=== PATIENT | male | born 1955 | race Two or more races ===

== ENCOUNTER → 2016-08-13 | Outpatient (REF) | payer MEDICAID | LOC: M SFHCADAM 08:04 | PROVIDERS: ATTEND Family Medicine | DX: R35.1 Nocturia (principal); R63.1 Polydipsia ==

== ENCOUNTER → 2016-10-05 | Outpatient (REF) | payer MEDICAID ==
[2016-10-05 20:03] LABS: BASO % 0.3 % (0.0-1.0); EOS # 0.1 K/mm3 (0.0-0.50); EOS % 1.3 % (0.0-3.0); LARGE UNSTAINED CELL # 0.1 K/mm3 (0.0-0.4); LARGE UNSTAINED CELL % 1.5 % (0.0-4.0); LYMPH # 2.1 K/mm3 (1.5-4.5); LYMPH % 22.8 % (24.0-44.0); MEAN CORPUSCULAR HEMOGLOBIN 30.4 pg (27.0-33.0); MEAN CORPUSCULAR HGB CONC 33.4 g/dl (32.0-36.5); MEAN CORPUSCULAR VOLUME 91.1 fl (80.0-96.0); MONO # 0.5 K/mm3 (0.0-0.8); MONO % 5.9 % (0.0-5.0); NEUTROPHILS # 5.8 K/mm3 (1.8-7.7); NEUTROPHILS % 68.2 % (36.0-66.0); PLATELET COUNT, AUTOMATED 319 k/mm3 (150-450); RED CELL DISTRIBUTION WIDTH 12.8 % (11.5-14.5); WHITE BLOOD COUNT 8.5 K/mm3 (4.0-10.0)
[2016-10-05 20:24] LABS: ALBUMIN 3.9 GM/DL (3.2-5.2); ALBUMIN/GLOBULIN RATIO 1.39 (1.00-1.93); BILIRUBIN,TOTAL 0.6 MG/DL (0.2-1.0); CALCIUM LEVEL 9.2 MG/DL (8.8-10.2); CREATININE FOR GFR 1.56 MG/DL (0.70-1.30); GLOMERULAR FILTRATION RATE 48.6 (>49); POTASSIUM SERUM 4.1 MEQ/L (3.5-5.1); TOTAL PROTEIN 6.7 GM/DL (6.4-8.2)
== END ==
LOC: M SFHCADAM 14:58
PROVIDERS: ATTEND Family Medicine
DX: Z00.00 Encounter for general adult medical examination without abnormal findings (principal)

== ENCOUNTER → 2016-10-05 | Outpatient (CLI) | payer MEDICAID | LOC: M ADAMS 15:00 | PROVIDERS: ATTEND Family Medicine | DX: Z00.00 Encounter for general adult medical examination without abnormal findings (principal) ==

== ENCOUNTER → 2016-10-12 | Outpatient (REF) | payer MEDICAID, OTHER ==
[2016-10-12 20:26] LABS: CALCIUM LEVEL 9.2 MG/DL (8.8-10.2); CREATININE FOR GFR 1.52 MG/DL (0.70-1.30); POTASSIUM SERUM 4.4 MEQ/L (3.5-5.1)
== END ==
LOC: M SFHCADAM 16:58
PROVIDERS: ATTEND Family Medicine
DX: R94.4 Abnormal results of kidney function studies (principal)

== ENCOUNTER → 2017-01-14 | Outpatient (CLI) | payer MEDICAID, OTHER ==
--- NOTE | 2017-01-14 20:45 | REP ---
RENAL AND BLADDER ULTRASOUND: Real-time sonographic evaluation of the kidneys is performed. The right kidney measures 13.6 x 6.5 x 6.2 cm and left kidney is 13.2 x 4.6 x 6.4 cm. There is moderate to severe hydronephrosis bilaterally. No mass or calculus is seen. Bladder measures 17.7 x 12.7 x 12.1 cm for a volume of 1776 mL. No mass or calculus is seen. There are ureteral jets seen in the urinary bladder with Doppler color evaluation. There is significant postvoid residual after voiding of 1514 mL which is 85% of the original volume. IMPRESSION: Moderate to severe hydronephrosis bilaterally. Significantly distended bladder with significant postvoid residual as described above. Signed by Ryley Morley MD 01/15/2017 05:14 P
== END ==
LOC: M RAD 17:27
PROVIDERS: ATTEND Family Medicine
DX: N18.3 Chronic kidney disease, stage 3 (moderate) (principal)

== ENCOUNTER → 2017-02-05 | Outpatient (CLI) | payer OTHER ==
--- NOTE | 2017-02-05 16:51 | REP ---
ULTRASOUND URINARY BLADDER: Real-time sonographic evaluation of the urinary bladder performed. The bladder measures 15.3 x 12.0 x 11.2 cm for a total volume of 1342 mL. There are bilateral ureteral jets in the urinary bladder with Doppler color evaluation. No mass or calculus is seen. There is significant postvoid residual of 980 mL which is 73% of the original volume. Distal ureters appear moderately dilated which may indicate some degree of reflux or poor ureteral emptying. Signed by Ryley Morley MD 02/08/2017 09:54 A
== END ==
LOC: M RAD 14:01
PROVIDERS: ATTEND Family Medicine
DX: N40.1 Benign prostatic hyperplasia with lower urinary tract symptoms (principal)

== ENCOUNTER → 2017-03-15 | Outpatient (REF) | payer OTHER, MEDICAID | LOC: M SMT 16:58 | PROVIDERS: ATTEND Nurse Practitioner Women's Health | DX: N28.89 Other specified disorders of kidney and ureter (principal) ==

== ENCOUNTER → 2017-03-22 | Outpatient (REF) | payer MEDICAID, OTHER ==
[2017-03-22 14:06] LABS: ALBUMIN/GLOBULIN RATIO 1.08 (1.00-1.93); BILIRUBIN,TOTAL 0.3 MG/DL (0.2-1.0); CALCIUM LEVEL 9.1 MG/DL (8.8-10.2); CREATININE FOR GFR 2.1 MG/DL (0.70-1.30); GLOMERULAR FILTRATION RATE 34.5 (>49); TOTAL PROTEIN 7.7 GM/DL (6.4-8.2)
[2017-03-22 14:07] LABS: POTASSIUM SERUM 5.2 MEQ/L (3.5-5.1)
== END ==
LOC: M LABDRWAD 12:22
PROVIDERS: ATTEND Nurse Practitioner Women's Health
DX: N28.89 Other specified disorders of kidney and ureter (principal); R94.4 Abnormal results of kidney function studies

== ENCOUNTER → 2017-03-29 | Outpatient (REF) | payer MEDICAID, OTHER | LOC: M SMT 12:41 | PROVIDERS: ATTEND Urology | DX: R33.8 Other retention of urine (principal) ==

== ENCOUNTER → 2017-03-30 | Outpatient (CLI) | payer OTHER ==
--- NOTE | 2017-03-30 13:27 | REP ---
Renal ultrasound: Comparison is 01/14/2017. There is no hydronephrosis on the right on the left. The previous bilateral hydronephrosis has resolved. The right kidney measures 4.4 x 5.4 x 4.9 cm. Left kidney measures 11.3 by 4.8 x 4.9 cm. Renal cortical echogenicity on the right is isoechoic on the left is normal. There is a right renal simple cyst measuring 9.3 mm. There is a left renal simple cyst measuring 23 mm. There are no solid renal masses. There are no collecting system renal calculi on the right. There are linear echogenicities compatible with vascular atheroma. On the left. There are is a 6 mm renal calculus in the mid pole reji. No hydronephrosis. Bladder ultrasound: There is a Quiroz catheter. The bladder is incompletely distended. There is diffuse bladder wall thickening which be artifact from incomplete distension. Impression: The previous bilateral hydronephrosis has resolved. There is a nonobstructive left renal calculus. There are bilateral simple renal cortical cysts. There are no solid renal masses. Signed by Ryley Parsons MD 03/30/2017 01:18 P
== END ==
LOC: M SMT 10:10
PROVIDERS: ATTEND Urology
DX: N40.1 Benign prostatic hyperplasia with lower urinary tract symptoms (principal); R33.8 Other retention of urine

== ENCOUNTER → 2017-03-31 | Outpatient (CLI) | payer OTHER ==
--- NOTE | 2017-03-31 14:12 | REP ---
CT of the abdomen and pelvis without IV or bowel contrast: There are no comparisons. There is no hydronephrosis on the right on the left. There is a left renal parapelvic cyst. There are no renal or ureteral calculi on the right on the left. There are no bladder calculi. There is a Quiroz catheter in the bladder. The bladder is minimally distended. There is a cecal diverticulum without diverticulitis. The appendix is normal. The visualized lung roy are clear. The unenhanced hepatic parenchyma, gallbladder, pancreas and spleen are unremarkable. The adrenals, kidneys and abdominal aorta are unremarkable. I suspect a left renal parapelvic cyst. The abdominal aorta is unremarkable except for occasional calcified atheroma. Bowel and mesentery are unremarkable except for a cecal diverticulum without diverticulitis. Pelvis: There is a Quiroz catheter in the bladder. There is no adenopathy or ascites. The pelvic bowel loops are otherwise unremarkable. Impression: There is a Quiroz catheter in the bladder and the bladder is minimally distended. There is no hydronephrosis. There are no renal or ureteral calculi. I suspect there is a left renal parapelvic cyst. There is a cecal diverticulum without diverticulitis. There are phleboliths in the pelvis. Signed by Ryley Parsons MD 03/31/2017 02:03 P
== END ==
LOC: M RAD 13:07
PROVIDERS: ATTEND Nurse Practitioner Women's Health
DX: N13.1 Hydronephrosis with ureteral stricture, not elsewhere classified (principal)

== ENCOUNTER → 2017-04-13 | Outpatient (REF) | payer MEDICAID, OTHER ==
[2017-04-13 13:02] LABS: CALCIUM LEVEL 9.1 MG/DL (8.8-10.2); CREATININE FOR GFR 1.77 MG/DL (0.70-1.30); POTASSIUM SERUM 4.5 MEQ/L (3.5-5.1)
== END ==
LOC: M LABSMT 10:18
PROVIDERS: ATTEND Nurse Practitioner Women's Health
DX: R33.9 Retention of urine, unspecified (principal); R35.0 Frequency of micturition

== ENCOUNTER → 2017-04-20 | Outpatient (REF) | payer MEDICAID, OTHER ==
[2017-04-20 12:44] LABS: OSMOLALITY URINE 464 MOSM/KG (500-800)
[2017-04-20 12:46] LABS: OSMOLALITY SERUM 305 MOSM/KG (275-295)
[2017-04-20 12:50] LABS: APPEARANCE, URINE HAZY (CLEAR); BACTERIA, URINE AUTO 1+ (NEGATIVE); BILIRUBIN, URINE AUTO NEGATIVE (NEGATIVE); BLOOD, URINE BLOOD 1+ (NEGATIVE); COLOR, URINE YELLOW (YELLOW); GLUCOSE, URINE (UA) AUTO NEGATIVE (NEGATIVE); KETONE, URINE AUTO NEGATIVE (NEGATIVE); LEUKOCYTE ESTERASE, URINE AUTO 3+ (NEGATIVE); MUCUS, URINE SMALL (NEGATIVE); NITRITE, URINE AUTO NEGATIVE (NEGATIVE); PROTEIN, URINE AUTO 1+ mg/dL (NEGATIVE); RBC, URINE AUTO 17 /HPF (0-3); SPECIFIC GRAVITY URINE AUTO 1.012 (1.002-1.035); SQUAMOUS EPITHELIAL CELL UR AU 0 /HPF (0-6); UROBILINOGEN, URINE AUTO 0.2 mg/dL (0.0-2.0); WBC, URINE AUTO 97 /HPF (0-3)
[2017-04-20 12:51] LABS: ANION GAP 5 MEQ/L (8-16); BLOOD UREA NITROGEN 28 MG/DL (7-18); CALCIUM LEVEL 9.3 MG/DL (8.8-10.2); CARBON DIOXIDE LEVEL 30 MEQ/L (21-32); CHLORIDE LEVEL 108 MEQ/L (98-107); CREATININE FOR GFR 1.92 MG/DL (0.70-1.30); GLOMERULAR FILTRATION RATE 38.2 (>49); GLUCOSE, FASTING 114 MG/DL (80-110); POTASSIUM SERUM 5.1 MEQ/L (3.5-5.1); SODIUM LEVEL 143 MEQ/L (136-145)
== END ==
LOC: M SFHCADAM 09:29
DX: N18.3 Chronic kidney disease, stage 3 (moderate) (principal)

== ENCOUNTER → 2017-05-03 | Outpatient (REF) | payer OTHER ==
[2017-05-03 21:29] LABS: OSMOLALITY URINE 353 MOSM/KG (500-800)
== END ==
LOC: M LAB REF 16:49
DX: E23.2 Diabetes insipidus (principal)

== ENCOUNTER → 2017-05-04 | Outpatient (REF) | payer OTHER | LOC: M LABDRWAD 20:30 | DX: E23.2 Diabetes insipidus (principal) ==

== ENCOUNTER → 2017-05-28 | Outpatient (REF) | payer OTHER | LOC: M SMT 12:45 | DX: R33.9 Retention of urine, unspecified (principal) ==

== ENCOUNTER 2017-06-02 06:02 | Day surgery (SDC) | payer OTHER ==
[2017-06-02] MEDS: LR 1,000 ML IV (06:40)
[2017-06-02] MEDS ORDERED: ROCURONIUM BROMIDE 50 MG/5 ML VIAL As Ordered (07:14)
[2017-06-02] MEDS ORDERED: PROPOFOL 200 MG/20 ML VIAL As Ordered (07:14)
[2017-06-02] MEDS ORDERED: LIDOCAINE 2% INJ 100 MG/5 ML SDV (FOR ANES.) As Ordered (07:14)
[2017-06-02] MEDS ORDERED: fentaNYL 250 MCG/5 ML INJECTION (J3010) As Ordered (07:15)
[2017-06-02] MEDS ORDERED: MIDAZOLAM INJ 2 MG/2 ML VIAL (J2250) As Ordered (07:15)
[2017-06-02] MEDS ORDERED: ONDANSETRON 4MG/2ML VIAL (J2405) As Ordered (08:03)
[2017-06-02] MEDS ORDERED: ePHEDrine INJ 50 MG/ML VIAL As Ordered (08:03)
[2017-06-02] MEDS ORDERED: dexameTHASONE 4 MG/ML 1ML VIAL (J1100) As Ordered (08:03)
[2017-06-02] MEDS ORDERED: PHENYLephrine HCL 500 MCG/5 ML (100MCG/ML) SYRINGE (J2370) As Ordered (09:19)
[2017-06-02] MEDS ORDERED: ONDANSETRON 4MG/2ML VIAL (J2405) IV (10:15)
[2017-06-02] MEDS ORDERED: fentaNYL 100 MCG/2 ML INJECTION (J3010) IV (10:15)
[2017-06-02] MEDS ORDERED: LR 1,000 ML IV (10:15)
== END 2017-06-02 11:42 | disposition home or self-care (01) ==
LOC: M SDC 06:02
DX: N40.0 Benign prostatic hyperplasia without lower urinary tract symptoms (principal); I15.0 Renovascular hypertension; R94.31 Abnormal electrocardiogram [ECG] [EKG]; R06.00 Dyspnea, unspecified; R73.01 Impaired fasting glucose; F17.210 Nicotine dependence, cigarettes, uncomplicated; N18.3 Chronic kidney disease, stage 3 (moderate); R06.83 Snoring; Z79.899 Other long term (current) drug therapy
CPT/HCPCS: 52601

== ENCOUNTER → 2017-06-17 | Outpatient (REF) | payer OTHER | LOC: M LABWUC 19:36 | DX: N40.1 Benign prostatic hyperplasia with lower urinary tract symptoms (principal) | CPT/HCPCS: 87086 ==

== ENCOUNTER → 2017-06-18 | Outpatient (REF) | payer OTHER ==
[2017-06-18 17:35] LABS: APPEARANCE, URINE CLEAR (CLEAR); BACTERIA, URINE AUTO 1+ (NEGATIVE); BILIRUBIN, URINE AUTO NEGATIVE (NEGATIVE); BLOOD, URINE BLOOD 3+ (NEGATIVE); COLOR, URINE YELLOW (YELLOW); GLUCOSE, URINE (UA) AUTO NEGATIVE (NEGATIVE); KETONE, URINE AUTO NEGATIVE (NEGATIVE); LEUKOCYTE ESTERASE, URINE AUTO 1+ (NEGATIVE); NITRITE, URINE AUTO NEGATIVE (NEGATIVE); PROTEIN, URINE AUTO NEGATIVE (NEGATIVE); RBC, URINE AUTO TNTC /HPF (0-3); SPECIFIC GRAVITY URINE AUTO 1.015 (1.002-1.035); SQUAMOUS EPITHELIAL CELL UR AU 0 /HPF (0-6); UROBILINOGEN, URINE AUTO 0.2 mg/dL (0.0-2.0); WBC, URINE AUTO 41 /HPF (0-3)
== END ==
LOC: M SMT 16:53
DX: N40.1 Benign prostatic hyperplasia with lower urinary tract symptoms (principal)

== ENCOUNTER → 2018-11-11 | Outpatient (REF) | payer OTHER ==
[~2018-11-11] MED LIST: AMLO10TA5 PO; CIPR500T3 PO; FLOM0.4C39 PO; PROS5TAB PO; TYLE650T35 PO
[2018-11-11 19:48] LABS: APPEARANCE, URINE CLEAR (CLEAR); BACTERIA, URINE AUTO NEGATIVE (NEGATIVE); BILIRUBIN, URINE AUTO NEGATIVE (NEGATIVE); BLOOD, URINE BLOOD NEGATIVE (NEGATIVE); COLOR, URINE YELLOW (YELLOW); GLUCOSE, URINE (UA) AUTO NEGATIVE (NEGATIVE); KETONE, URINE AUTO NEGATIVE (NEGATIVE); LEUKOCYTE ESTERASE, URINE AUTO NEGATIVE (NEGATIVE); MUCUS, URINE SMALL (NEGATIVE); NITRITE, URINE AUTO NEGATIVE (NEGATIVE); PROTEIN, URINE AUTO NEGATIVE (NEGATIVE); RBC, URINE AUTO 0 /HPF (0-3); SPECIFIC GRAVITY URINE AUTO 1.014 (1.002-1.035); SQUAMOUS EPITHELIAL CELL UR AU 0 /HPF (0-6); UROBILINOGEN, URINE AUTO 0.2 mg/dL (0.0-2.0); WBC, URINE AUTO 1 /HPF (0-3)
[2018-11-11 19:51] LABS: BASO # 0.1 10^3/uL (0.0-0.2); BASO % 0.4 % (0.0-1.0); EOS # 0.2 10^3/uL (0.0-0.50); EOS % 1.7 % (0.0-3.0); HEMOGLOBIN 16.4 g/dl (13.5-17.5); LYMPH # 2.7 10^3/uL (1.5-4.5); LYMPH % 22.1 % (24.0-44.0); MEAN CORPUSCULAR HEMOGLOBIN 30.1 pg (27.0-33.0); MEAN CORPUSCULAR HGB CONC 33.5 g/dl (32.0-36.5); MEAN CORPUSCULAR VOLUME 90.1 fl (80.0-96.0); MONO # 0.9 10^3/uL (0.0-0.8); MONO % 7.1 % (0.0-5.0); NEUTROPHILS # 8.2 10^3/uL (1.8-7.7); NEUTROPHILS % 68.3 % (36.0-66.0); PLATELET COUNT, AUTOMATED 391 10^3/uL (150-450); RED BLOOD COUNT 5.44 10^6/uL (4.30-6.10)
[2018-11-11 19:59] LABS: ALBUMIN 4.4 GM/DL (3.2-5.2); BILIRUBIN,TOTAL 0.7 MG/DL (0.2-1.0); CALCIUM LEVEL 10.1 MG/DL (8.8-10.2); CREATININE FOR GFR 1.73 MG/DL (0.70-1.30); GLOMERULAR FILTRATION RATE 42.8 (>49); POTASSIUM SERUM 4.8 MEQ/L (3.5-5.1); TOTAL PROTEIN 7.8 GM/DL (6.4-8.2)
== END ==
LOC: M SFHCADAM 16:32
PROVIDERS: ATTEND Family Medicine
DX: I10 Essential (primary) hypertension (principal); Z87.448 Personal history of other diseases of urinary system

== ENCOUNTER → 2019-10-12 | Outpatient (REF) | payer OTHER ==
[2019-10-12 18:01] LABS: BASO % 0.4 % (0.0-1.0); EOS # 0.2 10^3/uL (0.0-0.5); EOS % 2.1 % (0.0-3.0); HEMATOCRIT 43.5 % (42.0-52.0); HEMOGLOBIN 14.4 g/dl (13.5-17.5); LYMPH # 2.2 10^3/uL (1.5-5.0); LYMPH % 22.6 % (24.0-44.0); MEAN CORPUSCULAR HEMOGLOBIN 29.9 pg (27.0-33.0); MEAN CORPUSCULAR HGB CONC 33.1 g/dl (32.0-36.5); MEAN CORPUSCULAR VOLUME 90.2 fl (80.0-96.0); MONO # 0.8 10^3/uL (0.0-0.8); MONO % 8.3 % (0.0-5.0); NEUTROPHILS # 6.3 10^3/uL (1.5-8.5); PLATELET COUNT, AUTOMATED 370 10^3/uL (150-450); RED BLOOD COUNT 4.82 10^6/uL (4.30-6.10); WHITE BLOOD COUNT 9.5 10^3/uL (4.0-10.0)
[2019-10-12 18:09] LABS: ALBUMIN 3.7 GM/DL (3.2-5.2); BILIRUBIN,TOTAL 0.7 MG/DL (0.2-1.0); CALCIUM LEVEL 9.3 MG/DL (8.8-10.2); CHOLESTEROL RISK RATIO 3.745 (<5); CREATININE FOR GFR 1.31 MG/DL (0.70-1.30); GLOMERULAR FILTRATION RATE 58.8 (>49); POTASSIUM SERUM 4.1 MEQ/L (3.5-5.1); TOTAL PROTEIN 6.8 GM/DL (6.4-8.2)
== END ==
LOC: M SFHCADAM 15:18
PROVIDERS: ATTEND Family Medicine
DX: Z00.00 Encounter for general adult medical examination without abnormal findings (principal)

== ENCOUNTER → 2019-12-07 | Outpatient (CLI) | payer OTHER ==
[~2019-12-07] MED LIST changes: +ACET650T61 PO; -AMLO10TA5 PO; +AMLO1TAB25 PO; -TYLE650T35 PO
--- NOTE | 2020-01-09 10:25 | REP ---
LUMBAR SPINE SERIES COMPARISON: None. REASON FOR EXAM: Pain. FINDINGS: Heavy marginal osteophytosis is seen bilaterally at all levels of varying degrees. This is also seen involving the imaged portion of the thoracic spine. Vertebral body height and alignment are within normal limits with some straightening of the normal lumbar lordotic curve. There is moderate disc space narrowing at every level. There is anterior lipping at every level. Degenerative facet joint changes are seen bilaterally at every level. There is no evidence of spondylolysis or spondylolisthesis. IMPRESSION: * Chronic changes as described above. * Straightening of the normal lumbar lordotic curve suggesting the clinical diagnosis of muscular spasm. MTDD
== END ==
LOC: M ADAMS 08:52
PROVIDERS: ATTEND Family Medicine
DX: M25.78 Osteophyte, vertebrae (principal); M51.36 Other intervertebral disc degeneration, lumbar region; M62.830 Muscle spasm of back

== ENCOUNTER → 2020-09-17 | Outpatient (REF) | payer OTHER ==
[2020-09-17 18:13] LABS: BASO # 0.1 10^3/uL (0.0-0.2); BASO % 0.5 % (0.0-1.0); EOS # 0.2 10^3/uL (0.0-0.5); EOS % 2.4 % (0.0-3.0); HEMATOCRIT 51.9 % (42.0-52.0); HEMOGLOBIN 16.6 g/dl (13.5-17.5); LYMPH # 2.2 10^3/uL (1.5-5.0); LYMPH % 23.1 % (24.0-44.0); MEAN CORPUSCULAR HEMOGLOBIN 29.3 pg (27.0-33.0); MEAN CORPUSCULAR VOLUME 91.5 fl (80.0-96.0); MONO # 0.7 10^3/uL (0.0-0.8); MONO % 7.3 % (2.0-8.0); NEUTROPHILS # 6.2 10^3/uL (1.5-8.5); NEUTROPHILS % 66.1 % (36.0-66.0); PLATELET COUNT, AUTOMATED 386 10^3/uL (150-450); RED BLOOD COUNT 5.67 10^6/uL (4.30-6.10); WHITE BLOOD COUNT 9.3 10^3/uL (4.0-10.0)
[2020-09-17 18:26] LABS: ALBUMIN 3.7 GM/DL (3.2-5.2); BILIRUBIN,TOTAL 0.5 MG/DL (0.2-1.0); CALCIUM LEVEL 9.7 MG/DL (8.8-10.2); CHOLESTEROL RISK RATIO 4.245 (<5); CREATININE FOR GFR 1.67 MG/DL (0.70-1.30); GLOMERULAR FILTRATION RATE 44.3 (>49); POTASSIUM SERUM 4.8 MEQ/L (3.5-5.1); THYROID STIMULATING HORMONE 1.17 uIU/ML (0.358-3.740); TOTAL PROTEIN 6.8 GM/DL (6.4-8.2)
[2020-09-17 18:52] LABS: CREATININE, URINE 56.5 MG/DL; MALB URINE SIEMENS 5.8 MG/L; MAU/CREAT RATIO 10.2 MCG/MG (0.0-30.0)
== END ==
LOC: M SFHCADAM 14:18
PROVIDERS: ATTEND Physician Assistant Medical
DX: N18.30 Chronic kidney disease, stage 3 unspecified (principal); E78.00 Pure hypercholesterolemia, unspecified; F17.218 Nicotine dependence, cigarettes, with other nicotine-induced disorders; R04.0 Epistaxis

== ENCOUNTER → 2021-05-05 | Outpatient (REF) | payer OTHER | LOC: M SFHCADAM 12:25 | PROVIDERS: ATTEND Family Medicine | DX: R09.81 Nasal congestion (principal) ==

== ENCOUNTER → 2021-11-13 | Outpatient (REF) | payer OTHER | LOC: M SFHCADAM 09:03 | PROVIDERS: ATTEND Family Medicine | DX: Z53.9 Procedure and treatment not carried out, unspecified reason (principal) ==

== ENCOUNTER → 2021-11-14 | Outpatient (CLI) | payer OTHER | LOC: M PLAIMG 15:33 | PROVIDERS: ATTEND Family Medicine | DX: G45.9 Transient cerebral ischemic attack, unspecified (principal); N18.32 Chronic kidney disease, stage 3b ==

== ENCOUNTER → 2021-11-17 | Outpatient (CLI) | payer OTHER ==
[2021-11-17 14:42] LABS: CREATININE, URINE 82.2 MG/DL; MALB URINE SIEMENS 7.1 MG/L; MAU/CREAT RATIO 8.6 MCG/MG (0.0-30.0)
[2021-11-18 08:56] LABS: ALBUMIN 3.6 GM/DL (3.2-5.2); BILIRUBIN,TOTAL 0.5 MG/DL (0.2-1.0); CALCIUM LEVEL 9.4 MG/DL (8.8-10.2); CHOLESTEROL RISK RATIO 4.08 (<5); CREATININE FOR GFR 1.41 MG/DL (0.70-1.30); FREE T4 0.98 NG/DL (0.76-1.46); GLOMERULAR FILTRATION RATE 53.7 (>49); HEMOGLOBIN A1c 5.6 %; THYROID STIMULATING HORMONE 2.57 uIU/ML (0.358-3.740); TOTAL PROTEIN 6.8 GM/DL (6.4-8.2)
[2021-11-18 09:12] LABS: HEMATOCRIT 54.4 % (42.0-52.0); HEMOGLOBIN 17.2 g/dl (13.5-17.5); MEAN CORPUSCULAR HEMOGLOBIN 29.5 pg (27.0-33.0); MEAN CORPUSCULAR HGB CONC 31.6 g/dl (32.0-36.5); MEAN CORPUSCULAR VOLUME 93.3 fl (80.0-96.0); PLATELET COUNT, AUTOMATED 367 10^3/uL (150-450); RED BLOOD COUNT 5.83 10^6/uL (4.30-6.10); WHITE BLOOD COUNT 10.9 10^3/uL (4.0-10.0)
== END ==
LOC: M RAD 09:17
PROVIDERS: ATTEND Family Medicine
DX: Z13.1 Encounter for screening for diabetes mellitus (principal); Z12.5 Encounter for screening for malignant neoplasm of prostate; I11.9 Hypertensive heart disease without heart failure; G45.9 Transient cerebral ischemic attack, unspecified; N18.32 Chronic kidney disease, stage 3b; E78.5 Hyperlipidemia, unspecified

== ENCOUNTER → 2021-11-18 | Outpatient (CLI) | payer MEDICARE, OTHER ==
[~2021-11-18] MED LIST changes: +ASPI81CH33 PO
== END ==
LOC: M CARPUL 07:44
PROVIDERS: ATTEND Family Medicine
DX: G45.9 Transient cerebral ischemic attack, unspecified (principal); I11.9 Hypertensive heart disease without heart failure

== ENCOUNTER 2021-11-24 17:13 | Emergency (ER) | payer OTHER ==
[~2021-11-24] VITALS: Ht 185.4 cm; Wt 95.6 kg
[~2021-11-24 17:13] MED LIST changes: -ASPI81CH33 PO
[2021-11-24] MEDS ORDERED: ASPI81CH33 PO (17:27)
[2021-11-24 19:00] LABS: BASO # 0.1 10^3/uL (0.0-0.2); BASO % 0.5 % (0.0-1.0); EOS # 0.3 10^3/uL (0.0-0.5); HEMATOCRIT 53.3 % (42.0-52.0); HEMOGLOBIN 17.2 g/dl (13.5-17.5); LYMPH # 2.2 10^3/uL (1.5-5.0); LYMPH % 20.3 % (24.0-44.0); MEAN CORPUSCULAR HEMOGLOBIN 29.7 pg (27.0-33.0); MEAN CORPUSCULAR HGB CONC 32.3 g/dl (32.0-36.5); MEAN CORPUSCULAR VOLUME 91.9 fl (80.0-96.0); MONO # 0.9 10^3/uL (0.0-0.8); MONO % 8.5 % (2.0-8.0); NEUTROPHILS # 7.3 10^3/uL (1.5-8.5); NEUTROPHILS % 67.2 % (36.0-66.0); PLATELET COUNT, AUTOMATED 367 10^3/uL (150-450); WHITE BLOOD COUNT 10.9 10^3/uL (4.0-10.0)
[2021-11-24 19:18] LABS: INR 0.95; PARTIAL THROMBOPLASTIN TIME 28.8 SECONDS (25.9-37.0)
[2021-11-24 19:30] VITALS: BP 185/100
[2021-11-24 19:49] LABS: CALCIUM LEVEL 9.7 MG/DL (8.8-10.2); CREATININE FOR GFR 1.34 MG/DL (0.70-1.30); POTASSIUM SERUM 4.3 MEQ/L (3.5-5.1)
[2021-11-24 19:56] LABS: CK-MB VALUE MASS 2.2 NG/ML (<3.6); MB/CK RELATIVE INDEX 1.51 (< OR =4)
== END 2021-11-24 20:32 | disposition left against medical advice (07) ==
LOC: M ED 17:13
DX: G45.9 Transient cerebral ischemic attack, unspecified (principal); I10 Essential (primary) hypertension; F17.200 Nicotine dependence, unspecified, uncomplicated; Z86.73 Personal history of transient ischemic attack (TIA), and cerebral infarction without residual deficits; Z79.899 Other long term (current) drug therapy; Z53.21 Procedure and treatment not carried out due to patient leaving prior to being seen by health care provider

== ENCOUNTER → 2022-04-09 | Outpatient (REF) | payer OTHER ==
[~2022-04-09] MED LIST changes: +ASPI81CH33 PO
[2022-04-09 14:46] LABS: HEMATOCRIT 53.1 % (42.0-52.0); HEMOGLOBIN 16.7 g/dl (13.5-17.5); MEAN CORPUSCULAR HEMOGLOBIN 29.2 pg (27.0-33.0); MEAN CORPUSCULAR HGB CONC 31.5 g/dl (32.0-36.5); PLATELET COUNT, AUTOMATED 403 10^3/uL (150-450); RED BLOOD COUNT 5.71 10^6/uL (4.30-6.10); WHITE BLOOD COUNT 13.7 10^3/uL (4.0-10.0)
[2022-04-09 15:21] LABS: ALBUMIN 3.8 G/DL (3.2-5.2); ALKALINE PHOSPHATASE 74 U/L (46-116); ALT/SGPT 23 U/L (7.0-40); AST/SGOT 23 U/L (<34); BILIRUBIN,TOTAL 0.6 MG/DL (0.3-1.2); BLOOD UREA NITROGEN 25 MG/DL (9-23); CALCIUM LEVEL 9.5 MG/DL (8.3-10.6); CARBON DIOXIDE LEVEL 28 MMOL/L (20-31); CHLORIDE LEVEL 103 MMOL/L (98-107); CHOLESTEROL LEVEL 126 MG/DL (<200); CHOLESTEROL RISK RATIO 2.72 (<5); CREATININE FOR GFR 1.15 MG/DL (0.70-1.30); GLOMERULAR FILTRATION RATE > 60.0 (>49); GLUCOSE, FASTING 99 MG/DL (74-106); HDL CHOLESTEROL 46.2 MG/DL (>40); LDL CHOLESTEROL 70.2 MG/DL (<100); NON-HDL-C 80 MG/DL; SODIUM LEVEL 136 MMOL/L (136-145); TOTAL PROTEIN 6.9 G/DL (5.7-8.2); TRIGLYCERIDES LEVEL 48 MG/DL (<150)
== END ==
LOC: M SFHCADAM 12:06
PROVIDERS: ATTEND Family Medicine
DX: E78.5 Hyperlipidemia, unspecified (principal); N18.31 Chronic kidney disease, stage 3a

== ENCOUNTER → 2024-01-05 | Outpatient (CLI) | payer MEDICARE ==
[~2024-01-05] MED LIST changes: +FINA-48 PO; -PROS5TAB PO
== END ==
LOC: M EKG 17:12
PROVIDERS: ATTEND Internal Medicine Cardiovascular Disease
DX: I49.40 Unspecified premature depolarization (principal); G45.9 Transient cerebral ischemic attack, unspecified

== ENCOUNTER → 2024-02-04 | Outpatient (CLI) | payer MEDICARE, MEDICAID | LOC: M PLAIMG 08:52 | PROVIDERS: ATTEND Internal Medicine Cardiovascular Disease | DX: R60.0 Localized edema (principal); I49.40 Unspecified premature depolarization; G47.9 Sleep disorder, unspecified; I27.20 Pulmonary hypertension, unspecified; I08.3 Combined rheumatic disorders of mitral, aortic and tricuspid valves ==

== ENCOUNTER → 2024-02-07 | Outpatient (REF) | payer MEDICARE, MEDICAID ==
[2024-02-07 18:58] LABS: HEMATOCRIT 43.1 % (42.0-52.0); HEMOGLOBIN 14.1 g/dl (13.5-17.5); MEAN CORPUSCULAR HEMOGLOBIN 29.9 pg (27.0-33.0); MEAN CORPUSCULAR HGB CONC 32.7 g/dl (32.0-36.5); MEAN CORPUSCULAR VOLUME 91.5 fl (80.0-96.0); PLATELET COUNT, AUTOMATED 405 10^3/uL (150-450); RED BLOOD COUNT 4.71 10^6/uL (4.30-6.10)
[2024-02-07 19:03] LABS: ALBUMIN 3.6 G/DL (3.2-5.2); BILIRUBIN,TOTAL 0.8 MG/DL (0.3-1.2); CALCIUM LEVEL 9.6 MG/DL (8.3-10.6); CHOLESTEROL RISK RATIO 3.12 (<5); CREATININE FOR GFR 1.28 MG/DL (0.70-1.30); GLOMERULAR FILTRATION RATE 59.7 (>49); HDL CHOLESTEROL 37.5 MG/DL (>40); LDL CHOLESTEROL 72.7 MG/DL (<100); NON-HDL-C 79.5 MG/DL; POTASSIUM SERUM 4.8 MMOL/L (3.5-5.1); TOTAL PROTEIN 6.8 G/DL (5.7-8.2)
[2024-02-07 19:05] LABS: THYROID STIMULATING HORMONE 2.669 uIU/ML (0.55-4.78)
== END ==
LOC: M LABDRWAD 17:29
PROVIDERS: ATTEND Internal Medicine Cardiovascular Disease
DX: I10 Essential (primary) hypertension (principal); E78.00 Pure hypercholesterolemia, unspecified; R60.0 Localized edema

== ENCOUNTER → 2024-02-24 | Outpatient (CLI) | payer MEDICARE, MEDICAID | LOC: M CARPUL 09:54 | PROVIDERS: ATTEND Internal Medicine Cardiovascular Disease | DX: R94.31 Abnormal electrocardiogram [ECG] [EKG] (principal); R06.02 Shortness of breath; R53.83 Other fatigue ==

== ENCOUNTER → 2024-03-15 | Outpatient (CLI) | payer MEDICARE, MEDICAID ==
[~2024-03-15] MED LIST changes: +ISOVUE-370 76% 100ML VIAL As Ordered ONE
== END ==
LOC: M RAD 15:22
PROVIDERS: ATTEND Physician Assistant
DX: Z12.2 Encounter for screening for malignant neoplasm of respiratory organs (principal); R14.0 Abdominal distension (gaseous); F17.210 Nicotine dependence, cigarettes, uncomplicated
CPT/HCPCS: 71271; 74177; Q9967

== ENCOUNTER 2025-04-16 18:00 | Inpatient (IN) | payer MEDICARE, MEDICAID ==
[~2025-04-16] VITALS: Ht 185.4 cm; Wt 107.2 kg
[~2025-04-16 18:00] MED LIST changes: -AMOX875T2 PO; -ATOR80TA59 PO; -BAYE325T13 PO; -COLA100C5 PO; -IRBE300T25 PO; -OSEL75CA2 PO; -PRED20TA PO; -TAMS1CAP17 PO; -VENTAER INH
[2025-04-16 18:46] LABS: VENOUS BASE EXCESS -1.1 (-2.0-2.0); VENOUS HCO3 23.0 MMOL/L (23.0-27.0); VENOUS O2 SATURATION 77.1 % (60.0-80.0); VENOUS PARTIAL PRESSURE CO2 36.7 mmHg (38.0-50.0); VENOUS PARTIAL PRESSURE O2 43.0 mmHg (30.0-50.0); VENOUS PH 7.414 UNITS (7.330-7.430); VENOUS STANDARD HCO3 23.0 MMOL/L; VENOUS TOTAL CO2 24.1 MMOL/L (24.0-28.0)
[2025-04-16 18:47] LABS: PLATELET COUNT, AUTOMATED 349 10^3/uL (150-450)
[2025-04-16] MEDS: NS 0.9% IV STA (18:51)
[2025-04-16] MEDS: PIPERACILLIN/TAZOBACTAM SOD 4.5 GM in DEXTROSE 5% (D5W) ADV/MINI-BAG 50 ML IV ONE (18:51)
[2025-04-16] MEDS: [UNRECOGNIZED DRUG - OTHER] IV STA (18:51)
[2025-04-16] MEDS ORDERED: ISOVUE-370 76% 100 ML VIAL As Ordered ONE (19:06)
[2025-04-16 19:10] LABS: CPK CREATINE PHOSPHOKINASE 571.0 U/L (46-171)
[2025-04-16 19:11] LABS: ATYPICAL LYMPH 2 % (0-5); LYMPHOCYTES 11 % (16-44); MONOCYTES 2 % (0-5); NEUTROPHILS 84 % (28-66); PLATELET ESTIMATE NORMAL (NORMAL)
[2025-04-16 19:21] LABS: INR 1.07
[2025-04-16 19:32] LABS: ALT/SGPT 48.0 U/L (7.0-40); AST/SGOT 72.0 U/L (<34); C REACTIVE PROTEIN QUANTITATIV 19.96 MG/DL (<1.0); CALCIUM LEVEL 8.5 MG/DL (8.3-10.6); CARBON DIOXIDE LEVEL 23.0 MMOL/L (20-31); CHLORIDE LEVEL 101.0 MMOL/L (98-107); CK-MB VALUE MASS 20.7 NG/ML (<3.6); CREATININE FOR GFR 1.77 MG/DL (0.70-1.30); GLOMERULAR FILTRATION RATE 41.3 (>49); MB/CK RELATIVE INDEX 3.62 (< OR =4); POTASSIUM SERUM 3.8 MMOL/L (3.5-5.1); SODIUM LEVEL 134.0 MMOL/L (136-145); THYROXINE (T4) 10.9 UG/DL (4.5-10.9)
[2025-04-16] MEDS: IPRATROPIUM 0.5 MG/ALBUTEROL 2.5 MG INH SOL UD 3 ML NEB ONE (19:42)
[2025-04-16] MEDS: ALBUTEROL SULFATE 2.5 MG/0.5 ML INH CONCENTRATE NEB SOLN INH ONE (19:42)
[2025-04-16] MEDS: LIDOCAINE 2% 5 ML JELLY UROJET TOP ONE (19:49)
[2025-04-16 20:10] LABS: KETONE, URINE AUTO RFX NEGATIVE (NEGATIVE); LEUKOCYTE ESTERASE UR AUTO RFX NEGATIVE (NEGATIVE); MUCUS, URINE RFX SMALL (NEGATIVE); NITRITE, URINE AUTO RFX NEGATIVE (NEGATIVE); RBC, URINE AUTO RFX 0 /HPF (0-3); SQUAM EPITHELIAL CELL UR AURFX 0 /HPF (0-6); WBC, URINE AUTO RFX 1 /HPF (0-3)
[2025-04-16] MEDS: NOREPINEPHRINE 4MG IN D5 250ML 4 MG in IV 1 EA IV SCH ×2 (21:40→23:17)
[2025-04-16] MEDS ORDERED: NS (Normal Saline) 0.9% 1,000 ML IV SCH (21:45)
[2025-04-16] MEDS ORDERED: MOM 30 ML SUSPENSION UDC PO PRN (21:45)
[2025-04-16] MEDS ORDERED: MAALOX 30 ML SUSP *UDC PO PRN (21:45)
[2025-04-16 23:10] VITALS: BP 101/63; TEMP 97.9; O2SAT 96
[2025-04-16 23:15] VITALS: BP 101/65; O2SAT 94
[2025-04-16] MEDS: OSELTAMIVIR PHOSPHATE 30MG CAPSULE PO ONE (23:17)
[2025-04-16] MEDS: NS (Normal Saline) 0.9% 1,000 ML IV SCH (23:17)
[2025-04-16] MEDS: AZITHROMYCIN INJ 500 MG, VIAL MATE ADAPTER 1 EACH in NS 250 ML IV SCH (23:18)
[2025-04-16 23:30] VITALS: BP 105/69; O2SAT 92
[2025-04-16 23:45] VITALS: BP 107/73; O2SAT 92
[2025-04-17] VITALS (43 sets, daily range): BP systolic 77–126; BP diastolic 51–82; TEMP 97.5–98; O2SAT 87–96
[2025-04-17] MEDS: IPRATROPIUM 0.5 MG/ALBUTEROL 2.5 MG INH SOL UD 3 ML NEB SCH (03:00)
[2025-04-17 06:03] LABS: PLATELET COUNT, AUTOMATED 342 10^3/uL (150-450)
[2025-04-17 06:25] LABS: INR 1.1
[2025-04-17 06:44] LABS: ALT/SGPT 42.0 U/L (7.0-40); AST/SGOT 60.0 U/L (<34); CALCIUM LEVEL 8.1 MG/DL (8.3-10.6); CARBON DIOXIDE LEVEL 21.0 MMOL/L (20-31); CHLORIDE LEVEL 110.0 MMOL/L (98-107); CREATININE FOR GFR 1.32 MG/DL (0.70-1.30); GLOMERULAR FILTRATION RATE 58.8 (>49); MAGNESIUM LEVEL 2.4 MG/DL (1.8-2.4); POTASSIUM SERUM 3.9 MMOL/L (3.5-5.1); SODIUM LEVEL 140.0 MMOL/L (136-145)
[2025-04-17 07:04] LABS: HEPATITIS C VIRUS ABY INDEX 0.05 INDEX (<0.8)
[2025-04-17] MEDS: OSELTAMIVIR PHOSPHATE 30MG CAPSULE PO SCH (08:50)
[2025-04-17] MEDS: DOCUSATE SODIUM 100 MG CAPSULE PO SCH (08:50)
[2025-04-17] MEDS: PANTOPRAZOLE 40MG VIAL IV SCH (08:50)
[2025-04-17] MEDS ORDERED: ATOR80TA59 PO (09:10)
[2025-04-17] MEDS ORDERED: BAYE325T13 PO (09:10)
[2025-04-17] MEDS ORDERED: IRBE300T25 PO (09:10)
[2025-04-17] MEDS ORDERED: HOME MED LIST COMPLETE! XX SCH (09:10)
[2025-04-17] MEDS ORDERED: ALBUTEROL SULFATE 2.5 MG/0.5 ML INH CONCENTRATE NEB SOLN NEB PRN (15:00)
[2025-04-17] MEDS: cefTRIAXone SOD 1 GM in DEXTROSE 5% (D5W) ADV/MINI-BAG 50 ML IV SCH (16:06)
[2025-04-17] MEDS: TAMSULOSIN 0.4 MG CAP PO SCH (16:06)
[2025-04-17] MEDS: OSELTAMIVIR PHOSPHATE 75 MG CAP PO SCH (20:16)
[2025-04-17] MEDS: ATORVASTATIN 20 MG TAB PO SCH (20:16)
[2025-04-17] MEDS: AZITHROMYCIN 250 MG TABLET PO SCH (20:16)
[2025-04-17] MEDS: ASPIRIN 325 MG TAB PO SCH (20:16)
[2025-04-17] MEDS: HEPARIN SOD 5000 UNITS/ML 1 ML VIAL/SYRINGE SC SCH (20:18)
[2025-04-18 00:25] VITALS: BP 103/65; TEMP 97; O2SAT 92
[2025-04-18 04:04] VITALS: BP 120/83; TEMP 97; O2SAT 95
[2025-04-18 04:25] LABS: BASO # 0.0 10^3/uL (0.0-0.2); BASO % 0.2 % (0.0-1.0); EOS # 0.0 10^3/uL (0.0-0.5); EOS % 0.0 % (0.0-3.0); LYMPH # 0.8 10^3/uL (1.5-5.0); LYMPH % 5.0 % (24.0-44.0); MONO # 0.6 10^3/uL (0.0-0.8); MONO % 4.2 % (2.0-8.0); NEUTROPHILS # 13.1 10^3/uL (1.5-8.5); NEUTROPHILS % 86.8 % (36.0-66.0); PLATELET COUNT, AUTOMATED 420 10^3/uL (150-450)
[2025-04-18 04:47] LABS: PSA SCREENING 0.77 NG/ML (< 4.00)
[2025-04-18 04:50] LABS: ALT/SGPT 41.0 U/L (7.0-40); AST/SGOT 38.0 U/L (<34); CALCIUM LEVEL 8.3 MG/DL (8.3-10.6); CARBON DIOXIDE LEVEL 21.0 MMOL/L (20-31); CHLORIDE LEVEL 111.0 MMOL/L (98-107); CREATININE FOR GFR 1.23 MG/DL (0.70-1.30); GLOMERULAR FILTRATION RATE 64.0 (>49); POTASSIUM SERUM 4.4 MMOL/L (3.5-5.1); SODIUM LEVEL 142.0 MMOL/L (136-145)
[2025-04-18 05:15] VITALS: O2SAT 85
[2025-04-18 07:50] VITALS: BP 101/69; TEMP 97.5; O2SAT 91
[2025-04-18] MEDS ORDERED: TAMS1CAP17 PO (11:19)
[2025-04-18] MEDS ORDERED: COLA100C5 PO (11:19)
[2025-04-18] MEDS ORDERED: PRED20TA PO (11:19)
[2025-04-18] MEDS ORDERED: OSEL75CA2 PO (11:20)
[2025-04-18] MEDS ORDERED: VENTAER INH (11:24)
[2025-04-18] MEDS ORDERED: AMOX875T2 PO (11:28)
[2025-04-19] MEDS ORDERED: predniSONE 20 MG TAB PO SCH (09:00)
[2025-04-20 08:58] LABS: CERULOPLASMIN 28.0 mg/dL (14-30)
== END 2025-04-18 13:00 | disposition home or self-care (01) | DRG 871 ==
LOC: M ED 18:00 → M ED INP 22:08 → M ICU 23:04
PROVIDERS: ADMIT Student in an Organized Health Care Education/Training Program; ATTEND Internal Medicine
DX: A41.9 Sepsis, unspecified organism (principal); J96.01 Acute respiratory failure with hypoxia; J10.01 Influenza due to other identified influenza virus with the same other identified influenza virus pneumonia; R65.21 Severe sepsis with septic shock; J15.9 Unspecified bacterial pneumonia; J44.1 Chronic obstructive pulmonary disease with (acute) exacerbation; J44.0 Chronic obstructive pulmonary disease with (acute) lower respiratory infection; N13.30 Unspecified hydronephrosis; N13.4 Hydroureter; I10 Essential (primary) hypertension; R74.01 Elevation of levels of liver transaminase levels; R53.1 Weakness; N18.30 Chronic kidney disease, stage 3 unspecified; I12.9 Hypertensive chronic kidney disease with stage 1 through stage 4 chronic kidney disease, or unspecified chronic kidney disease; E78.5 Hyperlipidemia, unspecified; Z87.891 Personal history of nicotine dependence; Z79.82 Long term (current) use of aspirin; Z79.899 Other long term (current) drug therapy

== ENCOUNTER → 2025-04-16 | Outpatient (CLI) | payer MEDICARE, MEDICAID ==
[~2025-04-16] MED LIST changes: +AMOX875T2 PO; +ATOR80TA59 PO; +BAYE325T13 PO; +COLA100C5 PO; -FLOM0.4C39 PO; +IRBE300T25 PO; -ISOVUE-370 76% 100ML VIAL As Ordered ONE; +OSEL75CA2 PO; +PRED20TA PO; +TAMS-18 PO; +TAMS1CAP17 PO; +VENTAER INH
[2025-04-16 15:25] LABS: BASO # 0.0 10^3/uL (0.0-0.2); BASO % 0.2 % (0.0-1.0); EOS # 0.0 10^3/uL (0.0-0.5); EOS % 0.1 % (0.0-3.0); LYMPH # 1.1 10^3/uL (1.5-5.0); LYMPH % 6.8 % (24.0-44.0); MONO # 1.2 10^3/uL (0.0-0.8); MONO % 6.9 % (2.0-8.0); NEUTROPHILS # 14.3 10^3/uL (1.5-8.5); NEUTROPHILS % 85.3 % (36.0-66.0); PLATELET COUNT, AUTOMATED 355 10^3/uL (150-450)
[2025-04-16 15:56] LABS: ALT/SGPT 51.0 U/L (7.0-40); AST/SGOT 73.0 U/L (<34); CALCIUM LEVEL 8.8 MG/DL (8.3-10.6); CARBON DIOXIDE LEVEL 25.0 MMOL/L (20-31); CHLORIDE LEVEL 102.0 MMOL/L (98-107); CREATININE FOR GFR 1.89 MG/DL (0.70-1.30); GLOMERULAR FILTRATION RATE 38.2 (>49); POTASSIUM SERUM 4.0 MMOL/L (3.5-5.1); SODIUM LEVEL 137.0 MMOL/L (136-145)
[2025-04-16 16:34] LABS: C REACTIVE PROTEIN QUANTITATIV 19.43 MG/DL (<1.0)
== END ==
LOC: M PLALAB 14:28 → M RAD 14:28
PROVIDERS: ATTEND Physician Assistant
DX: R91.8 Other nonspecific abnormal finding of lung field (principal); J17 Pneumonia in diseases classified elsewhere